=== PATIENT | male | born 1995 | race Caucasian/White ===

== ENCOUNTER 2021-10-21 12:22 | Emergency (ER) | payer OTHER ==
[2021-10-21 12:38] VITALS: BMI 29.0
[2021-10-21 13:38] LABS: BASO % 0.4 % (0-2.0); EOS % 2.3 % (0-4.5); HEMATOCRIT 41.1 % (35.4-49); HEMOGLOBIN 14.4 GM/dL (11.7-16.9); LYMPH % 21.1 % (8-40); MCH 30.6 pg (25.7-33.7); MCHC 35.1 g/dl (32.0-35.9); MEAN CELL VOLUME 87.2 fl (80-96); MONO % 6.7 % (3.8-10.2); NEUT % 69.5 % (42.8-82.8); PLATELET COUNT 192 10^3/uL (134-434); RBC 4.72 M/mm3 (4.00-5.60); RDW 13.1 % (11.9-15.9); WHITE BLOOD COUNT 9.1 K/mm3 (4.0-10.0)
[2021-10-21 13:59] LABS: CHLORIDE 105 mmol/L (98-107); SODIUM 138 mmol/L (136-145)
[2021-10-21 14:03] LABS: ALBUMIN 4.3 g/dl (3.4-5.0); CALCIUM 9.3 mg/dL (8.5-10.1); GLUCOSE,RANDOM 91 mg/dL (74-106)
[2021-10-21 14:06] LABS: SGOT/AST 32 U/L (15-37)
[2021-10-21 14:08] LABS: TOT PROT 7.2 g/dl (6.4-8.2)
[2021-10-21 14:09] LABS: ALK PHOS 70 U/L (45-117)
[2021-10-21 14:16] LABS: ANION GAP 6 MMOL/L (8-16); CO2 27 mmol/L (21-32); SGPT/ALT 40 U/L (13-61)
[2021-10-21 15:34] LABS: COCAINE, UR NEGATIVE (NEGATIVE); METHADONE, UR NEGATIVE (NEGATIVE); OPIATES, URI NEGATIVE (NEGATIVE); PHENCYCLIDINE,URINE NEGATIVE (NEGATIVE); URINE AMPHETAMINES NEGATIVE (NEGATIVE); URINE BARBITURATES NEGATIVE (NEGATIVE); URINE BENZODIAZEPINES NEGATIVE (NEGATIVE)
[2021-10-21 17:45] VITALS: BP 137/85; PULSE 77; TEMP 98.6
== END 2021-10-21 17:59 | disposition home or self-care (01) ==
LOC: JER 12:22
DX: R45.851 Suicidal ideations (principal)
CPT/HCPCS: 36415; 80053; 80178; 80307; 85025; 99283-25